=== PATIENT | male | born 1985 | race Caucasian/White ===

== ENCOUNTER 2021-01-26 15:46 | Emergency (ER) | payer OTHER ==
[2021-01-26] MEDS ORDERED: MOTRIN600 MG PO (19:48)
== END 2021-01-26 20:02 | disposition home or self-care (01) ==
LOC: FER 15:46
DX: S93.412A Sprain of calcaneofibular ligament of left ankle, initial encounter (principal); X58.XXXA Exposure to other specified factors, initial encounter; Y92.89 Other specified places as the place of occurrence of the external cause; Y99.0 Civilian activity done for income or pay
CPT/HCPCS: 73610